=== PATIENT | male | born 1985 ===

== ENCOUNTER 2018-06-07 11:08 | Emergency (ER) | payer OTHER ==
[2018-06-07 11:26] VITALS: BMI 30.7
[2018-06-07] MEDS ORDERED: TDAP Vaccine 0.5 mL Syr IM ONE (11:32)
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
[2018-06-07 13:35] VITALS: RESP 18
[2018-06-07 15:05] VITALS: BP 124/72; PULSE 70; TEMP 98.4; O2SAT 99
== END 2018-06-07 13:40 | disposition home or self-care (01) ==
LOC: ED 11:08
DX: S02.32XA Fracture of orbital floor, left side, initial encounter for closed fracture (principal); S01.81XA Laceration without foreign body of other part of head, initial encounter; S09.90XA Unspecified injury of head, initial encounter; Y04.8XXA Assault by other bodily force, initial encounter; Z23 Encounter for immunization